=== PATIENT | female | born 2000 | race Caucasian/White ===

== ENCOUNTER 2024-12-21 15:56 | Inpatient (IN) | payer OTHER, SELFPAY ==
[2024-12-21] VITALS (13 sets, daily range): BP systolic 108–133; BP diastolic 59–82; PULSE 63–93; RESP 16–18; TEMP 36.8–37.5; O2SAT 98–100; BMI 32.8
[2024-12-21] MEDS: Lactated Ringers 1,000 ML 50 ML IV (16:28)
[2024-12-21 16:44] LABS: Hematocrit 37.5 % (37-47); Hemoglobin 12.6 g/dL (12.0-15.0); Immature Granulocytes Count 0.070 X10^3/uL (0.0-0.0); Mean Corp Hgb Conc 33.6 g/dL (32-36); Mean Corpuscular Volume 83.1 fL (81-99); Mean Platelet Vol. 11.3 fl (6.2-12.0); NRBC Flagged by Analyzer 0 % (0-5); Platelet Count 264 K/mm3 (150-450); RBC Distribution Width CV 12.5 % (11.6-14.6); RBC Distribution Width SD 37.9 fl (35.1-43.9); Red Blood Count 4.51 M/mm3 (4.2-5.4); White Blood Count 14.1 K/mm3 (4.4-11.0)
[2024-12-21 17:03] LABS: Barbiturate Urine NEGATIVE (< 200 ng/mL); Benzodiazepine Urine NEGATIVE (< 200 ng/mL); PCP Urine NEGATIVE (< 25 ng/mL); THC Urine NEGATIVE (< 50 ng/mL)
[2024-12-21 17:12] LABS: Syphilis Antibodies Nonreactive (Nonreactive)
[2024-12-21 17:52] LABS: ROM Internal Control Test YES-OK TO RESULT pt. (Internal QC); ROM Patient Test Negative (Negative)
[2024-12-21 17:53] LABS: Record Kit Lot#, ROM+ KJ3358
--- NOTE | 2024-12-21 19:14 | HP.PCM.OB_ITS ---
HPI - General General Date of Admission: 12/21/24 Date of Service: 12/21/24 Chief Complaint: labor HPI Narrative JABIER WHEELER, is a 24 F who presents with complaint of contractions. No obvious leaking of fluid. Good movement. Contractions have become more intense throughout the day and patient and she arrived to labor and delivery and was found to be in labor. Patient has history of marijuana use during the , PTSD, and is Rh-. Maternal Data Information Final KASSY: 12/19/24 Gestational age: 40 2/7 PFSH [facility] Medical History (Updated 12/21/24 @ 19:[address] Elyse Perez MD) PTSD (post-traumatic stress disorder) Home Medications ?Medication ?Instructions ?Recorded ?Last Taken ?Type vitamins no.102-iron 90 cap PO 12/21/24 Unkno wn History mg-folate 1 mg-dha 200 mg capsule Allergy/AdvReac Type Severity Reaction Status Date / Time No Known Allergies Allergy Verified 12/21/24 14:01 Social History Smoking Status: Former smoker History Elective abortions Hx Para 0 Spontaneous abortions Hx # Term Pregnancies Ectopic pregnancies Hx # Pregnancies Multiple births # of living children ROS Constitutional Constitutional: Denies fatigue, fever(s) or malaise Eyes Eyes: Denies change in vision ENT HEENT: Denies dizziness or headache(s) Cardiovascular Cardiovascular: Denies chest pain, dyspnea or lightheadedness Respiratory/Chest Respiratory/Chest: Denies cough or dyspnea Gastrointestinal Gastrointestinal: Denies change in bowel habits Genitourinary Genitourinary: Denies burning urination or genital lesions Integumentary Integumentary: Denies rash Neurologic Neurologic: Denies confusion, dizziness, headache(s), numbness or weakness Vital Signs Vital Signs Vital Signs: 12/21/24 14:00 12/21/24 14:00 12/21/24 14:00 Temperature Temperature Source Temporal Pulse Rate 90 Respiratory Rate Blood Pressure BP Systolic BP Diastolic Pulse Ox 98 12/21/24 14:00 12/21/24 14:00 12/21/24 14:01 Temperature 99.5 F H Temperature Source Pulse Rate Respiratory Rate 18 Blood Pressure 130/82 H BP Systolic 130 BP Diastolic 82 Pulse Ox 12/21/24 14:01 12/21/24 16:11 12/21/24 16:11 Temperature Temperature Source Pulse Rate 93 80 Respiratory Rate Blood Pressure BP Systolic BP Diastolic Pulse Ox 100 12/21/24 16:12 12/21/24 16:12 12/21/24 16:12 Temperature Temperature Source Temporal Pulse Rate 80 Respiratory Rate Blood Pressure 124/67 H BP Systolic 124 BP Diastolic 67 Pulse Ox 12/21/24 16:12 12/21/24 16:12 12/21/24 17:25 Temperature 98.5 F Temperature Source Pulse Rate Respiratory Rate 16 Blood Pressure 133/66 H BP Systolic 133 BP Diastolic 66 Pulse Ox 12/21/24 17:25 12/21/24 17:25 12/21/24 17:25 Temperature 98.7 F Temperature Source Pulse Rate 75 Respiratory Rate 16 Blood Pressure BP Systolic BP Diastolic Pulse Ox 12/21/24 17:25 12/21/24 17:25 12/21/24 18:24 Temperature Temperature Source Pulse Rate 78 Respiratory Rate Blood Pressure 122/74 H BP Systolic 122 BP Diastolic 74 Pulse Ox 99 12/21/24 18:24 12/21/24 18:24 12/21/24 18:24 Temperature Temperature Source Pulse Rate 66 66 Respiratory Rate Blood Pressure BP Systolic BP Diastolic Pulse Ox 100 12/21/24 18:24 12/21/24 18:24 12/21/24 18:24 Temperature 98.9 F Temperature Source Temporal Pulse Rate Respiratory Rate 16 Blood Pressure BP Systolic BP Diastolic Pulse Ox Weight Weight: 101 kg Body Mass Index (BMI) 32.8 Physical Exam Const alert and no apparent distress General Appearance: cooperative HEENT normocephalic Resp normal respiratory effort Cardio regular rate GI soft to palpation GI Narrative: gravid, nontender, appropriate for gestational age Extremity no calf tenderness General Extremity: edema Skin no wounds Rashes: No rashes noted Psych activity/motor behavior normal Labs Labs Labs: Blood Type B POSITIVE Antibody Screen NEGATIVE Hct 37.5 % (37-47) Hgb 12.6 g/dL (12.0-15.0) Syphilis Total Ab Nonreactive (Nonreactive) Assessment & Plan (1) 40 weeks gestation of : (2) Spontaneous onset of labor: COMMENT: Estimated weight is less than 4000 g [facility] [place] and pelvis clinically adequate to expect vaginal delivery. May have routine pain control measures in labor. Augmentation as needed as indicated. At this point patient plans to have an unmedicated and is coping with contractions and labor well.
[2024-12-22] VITALS (26 sets, daily range): BP systolic 105–130; BP diastolic 53–78; PULSE 70–108; RESP 15–19; TEMP 36.4–37.2; O2SAT 97–99
[2024-12-22] MEDS: Oxytocin 15 Units/NS 250ml 15 UNITS/250 ML IV.SOLN 334 UNITS IV (01:54)
[2024-12-22] MEDS: Ketorolac 30 MG/ML Syringe IV (02:12)
[2024-12-22] MEDS: Lidocaine 1% (20 ml mdv) 20 ML Vial INFILT (02:16)
[2024-12-22] MEDS: 0.9% Saline Lock 10 ML Syringe IV (02:16)
[2024-12-22] MEDS: Oxytocin 15 Units/NS 250ml 15 UNITS/250 ML IV.SOLN 83 UNITS IV (02:25)
--- NOTE | 2024-12-22 02:26 | EX.PCM.OBVAG ---
Assessment & Plan (1) (spontaneous vaginal delivery): (2) Second degree perineal laceration: Maternal Data Information Final KASSY: 12/19/24 Gestational age: 40 3/7 Vaginal Delivery Maternal Presentation Maternal Presentation: Active Labor Vaginal Delivery Information Procedure Performed: Spontaneous Vaginal Delivery Surgeon/Practitioner: Elyse Perez Date of Procedure: 12/22/24 Pre-Procedure Diagnosis: labor Post-Procedure Diagnosis: same Type of anesthesia: Local with 1% Lidocaine (18 cc) Special Medications: toradol 30 mg IV at delivery and 1 mg IV for pain control during repair Estimated Blood Loss: 300 Time of Delivery: 01:51 Findings Description of procedure: A vigorous female infant was delivered RADHA over a second-degree perineal laceration. A loose nuchal cord ?1 was easily reduced. The remainder the was delivered with maternal pushing and gentle traction only in less than 15 seconds. The Pitocin infusion was initiated for active management of the third stage. The cord was clamped and cut after cord pulsations ceased. The was attended to by the waiting nursing staff. The placenta was delivered spontaneously and intact. The cervix and vagina were intact. The second-degree perineal laceration was repaired with 3-0 Vicryl suture in a running standard fashion. Sponge and needle counts were correct. A vaginal sweep was completed by me. 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
--- NOTE | 2024-12-22 07:53 | NURSING ---
RN notified physician Dr. Perez of conflicting Rh results per pt H &P pt's blood type is B-, but per [facility] lab pt is B+. Per Dr. Perez, if the pt test results are positive then the pt does not need rhogam
--- NOTE | 2024-12-22 13:56 | NURSING ---
student charting reviewed that is used for educational and learning purposes.
[2024-12-23 03:24] VITALS: BP 99/65; PULSE 87; RESP 16; TEMP 36.4; O2SAT 98
[2024-12-23 08:45] VITALS: BP 102/63; PULSE 77; RESP 16; TEMP 36.2; O2SAT 97
--- NOTE | 2024-12-23 09:04 | DS.PCM_ITS ---
Providers Date of Admission: 12/21/24 Primary Care Physician: No Primary Care Phys Reason For Visit: VAG Diagnosis Discharge Diagnosis (1) (spontaneous vaginal delivery): Status: Acute Code(s): O80 - Encounter for full-term uncomplicated delivery (2) Second degree perineal laceration: Status: Acute Code(s): O70.1 - Second degree perineal laceration during delivery Medications at Discharge Home Medications vitamins no.102-iron 90 mg-folate 1 mg-dha 200 mg capsule cap PO 12/21/24 Hospital Course Operations None Procedures None Summary of Care Provided Minutes Spent on Discharge: 15 Hospital Course: Patient had vaginal delivery. Hospital course was uneventful. Physical Exam Narrative Patient seen at bedside. Denies pain. Ambulating and voiding without difficulty. Lochia decreased. Desires discharge home today. Const alert and oriented x3 General Appearance: Negative for in distress HEENT normocephalic Eyes General Eye: normal appearance of both eyes Neck General: normal visual inspection Chest Chest: symmetrical chest wall rise Resp normal respiratory effort and normal air movement Effort and Inspection: symmetric chest movement; Negative for tachypneic Auscultation: clear to auscultation bilaterally Cardio regular rate and regular rhythm Peripheral Pulses: pulses 2+ throughout GI normal to inspection, nondistended, normoactive bowel sounds Narrative: Ice to perineum OB / External & Speculum: vaginal bleeding and other Lochia decreasing Uterus Palpation: uterus fundus firm (Below U) Extremity normal to inspection, full ROM and normal capillary refill Skin no rashes or lesions noted Neuro oriented x3, CN's II-XII intact bilaterally and gait normal Psych mental status grossly normal, thought process normal and activity/motor behavior normal Weight / BMI Weight Weight: 222 lb 10.67 oz Body Mass Index (BMI) 32.8 ABG / Lab / Microbiology Data 12/21/24 16:20 D/C Instructions Discharge Activity: Return to Normal Activity, No Restrictions, May Drive, May Shower and May Take a Tub Bath (Warm water only. No bath salts, soaps, bubbles) May resume sexual activity in: 6-8 weeks Weight Bearing Status: Weight bearing as tolerated Call your doctor if you observe: Fever of 101 or Higher, Inability to urinate, Using more than 1 pad per hour, Shortness of breath, Dizziness, Chest pain, Calf discomfort and Uncontrolled pain DC O2, CPAP, BIPAP Needs Home O2 Discharge instructions: No Please Follow Up With: [facility] Onel CASILLAS When: 2 weeks in office or virtual Meaningful Use Info Meaningful Use Meaningful Use Diagnoses (Choose all that apply): None applicable Discharge Plan Admission Admit Date/Time: 12/21/24 15:56 Primary Reason for Your Visit: Labor and delivery Attending Provider: Elyse Perez Primary Care Provider: Care Physician,No Primary Discharge Orders/Prescriptions Prescriptions: No Action PNV [id number]-[id number] 90 mg iron- 1 mg-200 mg capsule PO Referrals / Follow Up: Care Physician,No Primary [Primary Care Provider] - Disposition Disposition (needs filled in before D/C Order can be placed): Home, Self Care
[2024-12-23 13:39] VITALS: BP 113/63; PULSE 72; RESP 16; TEMP 36.8; O2SAT 98
[2024-12-23 20:45] VITALS: BP 123/78; PULSE 87; RESP 16; TEMP 36.6; O2SAT 98
[2024-12-24 03:07] VITALS: BP 114/59; PULSE 84; RESP 14; TEMP 36.7; O2SAT 96
--- NOTE | 2024-12-24 07:01 | DS.PCM_ITS ---
Providers Date of Admission: 12/21/24 Primary Care Physician: No Primary Care Phys Reason For Visit: VAG Diagnosis Discharge Diagnosis (1) (spontaneous vaginal delivery): Status: Acute Code(s): O80 - Encounter for full-term uncomplicated delivery (2) Second degree perineal laceration: Status: Acute Code(s): O70.1 - Second degree perineal laceration during delivery Plan PPD 2 support D/C home with follow up in office Medications at Discharge Home Medications vitamins no.102-iron 90 mg-folate 1 mg-dha 200 mg capsule cap PO 12/21/24 naproxen 500 mg tablet 500 mg PO Q8H PRN PRN Pain Score 1-10 #0 tabs 12/24/24 Hospital Course Operations None Procedures None Summary of Care Provided Minutes Spent on Discharge: 15 Hospital Course: Patient had vaginal delivery. Hospital course was uneventful. Physical Exam Narrative Patient seen at bedside. Denies pain. Ambulating and voiding without difficulty. Lochia decreased. Desires discharge home today. Const alert and oriented x3 General Appearance: Negative for in distress HEENT normocephalic Eyes General Eye: normal appearance of both eyes Neck General: normal visual inspection Chest Chest: symmetrical chest wall rise Resp normal respiratory effort and normal air movement Effort and Inspection: symmetric chest movement; Negative for tachypneic Auscultation: clear to auscultation bilaterally Cardio regular rate and regular rhythm Peripheral Pulses: pulses 2+ throughout GI normal to inspection, nondistended, normoactive bowel sounds Narrative: Ice to perineum OB / External & Speculum: vaginal bleeding and other Lochia decreasing Uterus Palpation: uterus fundus firm (Below U) Extremity normal to inspection, full ROM and normal capillary refill Skin no rashes or lesions noted Neuro oriented x3, CN's II-XII intact bilaterally and gait normal Psych mental status grossly normal, thought process normal and activity/motor behavior normal Weight / BMI Weight Weight: 222 lb 10.67 oz Body Mass Index (BMI) 32.8 ABG / Lab / Microbiology Data 12/21/24 16:20 D/C Instructions Discharge Activity: Return to Normal Activity, No Restrictions, May Drive, May Shower and May Take a Tub Bath (Warm water only. No bath salts, soaps, bubbles) May resume sexual activity in: 6-8 weeks Weight Bearing Status: Weight bearing as tolerated Call your doctor if you observe: Fever of 101 or Higher, Inability to urinate, Using more than 1 pad per hour, Shortness of breath, Dizziness, Chest pain, Calf discomfort and Uncontrolled pain DC O2, CPAP, BIPAP Needs Home O2 Discharge instructions: No Please Follow Up With: [facility] Onel CASILLAS When: 2 weeks in office or virtual Meaningful Use Info Meaningful Use Meaningful Use Diagnoses (Choose all that apply): None applicable Discharge Plan Admission Admit Date/Time: 12/21/24 15:56 Primary Reason for Your Visit: Labor and delivery Attending Provider: Elyse Perez Primary Care Provider: Care Physician,No Primary Discharge Orders/Prescriptions Prescriptions: New naproxen 500 mg Tablet 500 mg PO Q8H PRN PRN (Reason: Pain Score 1-10) Qty: 0 0RF Continued PNV 085-[id number]-avhesc-[id number] 90 mg iron- 1 mg-200 mg capsule PO Referrals / Follow Up: Care Physician,No Primary [Primary Care Provider] - Disposition Disposition (needs filled in before D/C Order can be placed): Home, Self Care
[2024-12-24 10:00] VITALS: BP 106/62; PULSE 68; RESP 16; TEMP 36.9; O2SAT 97
[2024-12-24 14:00] VITALS: BP 117/65; PULSE 86; RESP 16; TEMP 36.3; O2SAT 99
[2024-12-24] MEDS: Senna/Docusate Sodium 1 Tablet PO (17:21)
--- NOTE | 2024-12-27 13:56 | CASEMGMT ---
Social Work Assessment Labor and Delivery Unit Patient Address: [address] [place] [address] Phone number: [phone] Date of Referral: 12/21/24 Time of Referral:? 1508 Referred By: Dr. Perez Date of Intervention: ??12/22/24 Time of Intervention:? 1200 Reason for Referral:?substance abuse Sw completed chart review and acknowledges social work consult. Sw presented to bedside and introduced self to mother of baby (MOB- Angela) and father of baby (FOB- Michael Quintero). Sw explained reason for sw involvement and completed psychosocial assessment. History obtained from: medical records, MOB and FOB Household composition: Currently residing in the home is MOB, FOB and baby when ready for discharge. FOB states that he has two older children: Zaida (16) and Trell (10) who are with him on the weekends. Parents deny any problems or concerns with housing, stating that it is safe and secure. Patient's parent/guardian status:? ?AUGUST states that she and NICOLETTE have been together since 2021. They are now and baby is first baby for parents together. No concerns regarding domestic violence or intimate partner violence. Medical History: ?AUGUST is 24 year old female who is 1, para 0- now 1 following labor and delivery of . AUGUST received routine care during with [facility]. AUGUST presented to hospital and delivered baby via spontaneous vaginal delivery on 12/22/24 at 40 weeks gestation. Baby girl named, Krystyna Ca, was born weighing 6lb 9oz with apgars of 8 and 9 at one and five minutes of life, respectfully. AUGUST is breast feeding and states that baby will be followed by Dr. Ruff for pediatrics when discharged. Educational Status:?Both parents graduated from high school and obtained some college but did not graduate. No problems with reading, learning or comprehension reported. Financial Status: Both parents are gainfully employed outside of the home. 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 Infant Supplies:?? All necessary baby supplies obtained including: car seat, safe sleep space, clothes, diapers and wipes. Childcare/Caregiver(s):?AUGUST reports that she will be the primary caregiver along with NICOLETTE when not working Transportation:?? Both parents have their drivers license and reliable means of transportation. Programs/Agencies Involved: ?Parents are over income for financial resources through community resources. ?? Children Services/Legal Issues:??? No prior involvement with children services, no issues or concerns warranting referral to be made at this time Behavioral Health Issues: ??Mental Health History: NICOLETTE denies mental health history. AUGUST states that she has history of PTSD from her childhood. MOB states that her mental health concerns have been addressed with. MOB states that she does not always struggle with her mental health, and when she feels as though she is anxious or feeling depressed she will smoke marijuana. MOB states that she is not connected to any mental health services or supports at this time and is not taking any pharmacological medications to help her. AUGUST states that she is not opposed to going to a counselor, but has not found these services to be beneficial in the past. ??? Substance Use History:?NICOLETTE reports to having a problem with opiates more than 18 years ago. NICOLETTE states that he has been connected to services that are supportive and has people that he talks to regularly. NICOLETTE states that he is sober and has been for many years and states that he does not have urges to use and has many reasons why he remains sober.l? Family History:? Drug Screens: ?? Family/Social Stressors:? Support Systems: Depression/Shaken Baby/Safe Sleeping:? ASSESSMENT:? Safe Plan of Care for related to substance use:? PLAN:? No other services requested or indicated. MOB and baby to be discharged when medically ready. Parents were provided literature regarding: signs and symptoms of baby blues and mood and anxiety disorders, Help Me Grow, shaken baby prevention, ABCs of safe sleep and a list of county resources that are available for them should any needs present themselves.
== END 2024-12-24 17:35 | disposition home or self-care (01) | DRG 807 ==
LOC: WPOUT 16:02 → WP 16:02
PROVIDERS: Admitting Provider Obstetrics & Gynecology; Referring Provider Obstetrics & Gynecology; Visit Provider Obstetrics & Gynecology
DX: O70.1 Second degree perineal laceration during delivery (principal); Z37.0 Single live birth; O69.81X0 Labor and delivery complicated by cord around neck, without compression, not applicable or unspecified; Z3A.40 40 weeks gestation of pregnancy; Z87.891 Personal history of nicotine dependence
CPT/HCPCS: 59025; 59050; 80307; 84112; 85025; 86780; 86850; 86900; 86901; 99221; A4216; G0378